=== PATIENT | female | born 1930 | race Caucasian/White ===

== ENCOUNTER 2018-01-11 09:37 | Emergency (ER) | payer OTHER ==
[~2018-01-11] VITALS: Ht 154.9 cm; Wt 52.2 kg
[~2018-01-11 09:37] MED LIST: ALBU90I INH; ALBU90OI; ALBU90OI INH; ASPI81EC PO; Aspir 8181 MG PO; CEPH500 PO; CYCL10 PO; Cefadroxil500 MG PO; DOC250 PO; FURO40 PO; HYDACE5; HYDACE5 PO; HYDCHL12.5 PO; Hydrocodone-Ap1 EA23 PO; LEVSOD125 PO; LEVSOD50 PO; METO50 PO; OMEP20ER PO; OXYACE5T PO; OXYC1TAB11 PO; POTCHL10ER PO; PRED1; PRED20; PRED5 PO; Percocet 10-321 EACH PO
[2018-01-11] MEDS ORDERED: LEVO750 PO (11:43)
[2018-01-11] MEDS ORDERED: Prednisone20 MG PO (11:43)
== END 2018-01-11 13:21 | disposition home or self-care (01) ==
LOC: ER 09:37
DX: J44.1 Chronic obstructive pulmonary disease with (acute) exacerbation (principal); J44.0 Chronic obstructive pulmonary disease with (acute) lower respiratory infection; J18.9 Pneumonia, unspecified organism; E03.9 Hypothyroidism, unspecified; K21.9 Gastro-esophageal reflux disease without esophagitis; I10 Essential (primary) hypertension; Z79.899 Other long term (current) drug therapy; Z79.52 Long term (current) use of systemic steroids; Z79.82 Long term (current) use of aspirin
CPT/HCPCS: 71046; 94640; 99283